=== PATIENT | female | born 1995 | race Caucasian/White ===

== ENCOUNTER 2020-10-08 12:22 | Emergency (ER) | payer MEDICAID, OTHER ==
[~2020-10-08] VITALS: Ht 162.6 cm; Wt 68.0 kg
[2020-10-08 12:34] VITALS: BP_SYST 128
--- NOTE | 2020-10-08 12:37 | NUR ---
Patient to ER bed 3 to gown for evaluation. Side rails up. Report given to Stefany ELLIS.
--- NOTE | 2020-10-08 12:45 | NUR ---
PT CAME IN FROM HOME WITH C/O CHANEL X 1.5 WEEKS AND A SEIZURE A FEW DAYS AGO. PT HAS A HX OF SEIZURES AND TAKES KEPPRA AT HOME. REPORTS THAT HE PRIMARY DOCTOR HAS NOT CHANGED HER MEDICATION DESPITE SEIZURE ACTIVITY. SHE ALSO REPORTS INTERMITTANTLY SEEING SPOTS. AAOX4, V/S STABLE
--- NOTE | 2020-10-08 13:00 | NUR ---
ER DR. PETE AT THE BEDSIDE EXAMINING PT
[2020-10-08] MEDS ORDERED: KETOROLAC TROMETHAMINE 60 MG/2 ML VIAL IM ONE (13:15)
[2020-10-08] MEDS ORDERED: TRAM50TA2 PO (14:16)
--- NOTE | 2020-10-08 14:20 | NUR ---
Patient given written and verbal discharge instructions and verbalizes understanding. ER MD discussed with patient the results and treatment provided. Patient in stable condition. ID arm band removed. Rx of TRAMADOL given. Patient educated on pain management and to follow up with PMD. Pain Scale 2/10. Opportunity for questions provided and answered. Medication side effect fact sheet provided.
[2020-10-08 14:24] VITALS: BP_SYST 128
== END 2020-10-08 14:24 | disposition home or self-care (01) ==
LOC: SED 12:22
DX: R51.9 Headache, unspecified (principal); Z88.0 Allergy status to penicillin; Z88.1 Allergy status to other antibiotic agents
CPT/HCPCS: 96372; 99283; J1885

== ENCOUNTER 2020-11-11 20:18 | Emergency (ER) | payer MEDICAID ==
[~2020-11-11] VITALS: Ht 162.6 cm; Wt 68.0 kg
[~2020-11-11 20:18] MED LIST: TRAM50TA2 PO
[2020-11-11 20:21] VITALS: BP_SYST 144
[2020-11-11 21:29] VITALS: BP_SYST 144
[2020-11-11] MEDS ORDERED: NACL 0.9% 1,000 ML IV ONE (22:00)
== END 2020-11-11 21:19 | disposition home or self-care (01) ==
LOC: SED 20:18
DX: K13.0 Diseases of lips (principal); J45.909 Unspecified asthma, uncomplicated; K21.9 Gastro-esophageal reflux disease without esophagitis; Z88.0 Allergy status to penicillin; Z88.1 Allergy status to other antibiotic agents
CPT/HCPCS: 99283